=== PATIENT | male | born 1955 | race Caucasian/White ===

== ENCOUNTER 2020-11-26 09:10 | Emergency (ER) | payer OTHER ==
[~2020-11-26] VITALS: Ht 185.4 cm; Wt 104.3 kg
--- OUTSIDE RECORDS SUMMARY | 2020-11-26 09:12 | XMS ---
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 Selvin has no Care Guidelines for this patient. Nabeel VISIT COUNT (12 MO.) 1 SUJIT Matias TOTAL 1 NOTE: Visits indicate total known visits. ED/C VISIT TRACKING (12 MO.) 11/26/2020 09:10 SUJIT Cho OR TYPE: Emergency COMPLAINT: - R FOOT INJURY INPATIENT VISIT TRACKING (12 MO.) No inpatient visits to display in this time frame [email or web address]
[2020-11-26] MEDS ORDERED: TRIAZOLAM0.25 MG PO (09:20)
[2020-11-26] MEDS ORDERED: DEXTROAMP-AMPHE10 MG PO (09:21)
[2020-11-26] MEDS ORDERED: DULOXETINE HCL30 MG PO (09:21)
[2020-11-26] MEDS ORDERED: HYDROCODON-ACE1 EA10 PO (09:21)
[2020-11-26] MEDS ORDERED: PREGABALIN75 MG PO (09:21)
== END 2020-11-26 10:20 | disposition home or self-care (01) ==
LOC: ED 09:10
DX: S90.851A Superficial foreign body, right foot, initial encounter (principal); J45.909 Unspecified asthma, uncomplicated; M79.7 Fibromyalgia; M19.90 Unspecified osteoarthritis, unspecified site; G47.00 Insomnia, unspecified; Z88.0 Allergy status to penicillin; Z79.899 Other long term (current) drug therapy; Z23 Encounter for immunization; W45.8XXA Other foreign body or object entering through skin, initial encounter
CPT/HCPCS: 73630; 90471; 90715; 99283-25